=== PATIENT | female | born 1980 | race Caucasian/White ===

== ENCOUNTER → 2023-11-27 | Emergency (ER) | payer BC ==
[~2023-11-27] MED LIST: NA CHLORIDE 0.9% 1,000 ML ONE; POTASSIUM 25 MEQ EFFERV TAB ONE
[2023-11-27 14:28] LABS: Specific Gravity 1.024 (1.005-1.030)
[2023-11-27 14:30] LABS: Specific Gravity 1.024 (1.005-1.030); Urine Bacteria <20 /HPF (<20); Urine Bilirubin NEGATIVE (Negative); Urine Blood Negative (Negative); Urine Clarity Extremely Turbid (Clear); Urine Color Light-Yellow (Yellow); Urine Glucose NEGATIVE (Negative); Urine Mucus Slight /HPF (None Seen); Urine Protein TRACE (Negative); Urine Urobilinogen Normal (Normal)
[2023-11-27 14:53] LABS: Hematocrit 38.2 % (36.0-45.0); MCV 86.4 fL (80-100); MPV 7.9 fL (7.6-11.3); Platelets 209 thou/uL (152-406); RBC Red Blood Cell Count 4.42 M/uL (3.86-4.86)
--- NOTE | 2023-11-27 14:57 | RAD REPORT ---
EXAM DESCRIPTION: CT - Head Brain Wo Cont - 11/27/2023 2:22 pm CLINICAL HISTORY: Syncope COMPARISON: none TECHNIQUE: Computed axial tomography of the head was obtained. IV contrast was not requested. All CT scans are performed using dose optimization technique as appropriate and may include automated exposure control or mA/KV adjustment according to patient size. FINDINGS: An intracranial bleed is not seen The ventricles are normal in caliber No significant hypodense areas within the brain visualized No extra-axial fluid collection is noted. Fluid within the sinuses/ mastoids is not seen IMPRESSION: No acute intracranial abnormality is seen If patient's symptoms persist MRI of the brain would be recommended
--- NOTE | 2023-11-27 14:57 | RAD REPORT ---
EXAM DESCRIPTION: Jean Single View11/27/2023 2:33 pm CLINICAL HISTORY: Hypertension and syncope COMPARISON: none FINDINGS: The lungs appear clear of acute infiltrate. The heart is normal size IMPRESSION: No acute abnormalities displayed
[2023-11-27 15:10] LABS: ALT/SGPT 17 U/L (13-56); AST/SGOT 13 U/L (15-37); BUN Blood Urea Nitrogen 18 mg/dL (7-18); Bicarbonate 27 mEq/L (21-32); Glomerular Filtration Rate 75 ml/min (=/>90); Glucose Level 126 mg/dL (74-106); Potassium 3.3 mEq/L (3.5-5.1); Sodium Level 135 mEq/L (136-145)
[2023-11-27 15:11] LABS: Albumin 3.3 g/dL (3.4-5.0); Alkaline Phosphatase 64 U/L (45-117); Bilirubin Total 0.3 mg/dL (0.2-1.0); Magnesium 2.2 mg/dL (1.6-2.4); Protein, Total 7.6 g/dL (6.4-8.2); Troponin High Sensitivity 3.8 pg/mL (<58.9)
[2023-11-27 15:16] LABS: Bilirubin Direct < 0.1 mg/dL (0-0.2); Bilirubin Indirect, Calculated ND mg/dL (0.2-0.8)
--- NOTE | 2023-11-27 16:08 | ER ---
Nurse's Notes [facility] Name: Perla Baeza Age: 43 yrs Sex: Female : 1980 Arrival Date: 11/27/2023 Time: 13:50 Bed 14 Private MD: Diagnosis: Syncope Near;Hypokalemia;Hypertensive heart disease without heart failure;Diabetes mellitus due to underlying condition with hyperglycemia Presentation: 11/27 14:00 Chief complaint: EMS states: toned out for lightheadedness. Patient was at work and me1 became lightheaded. No LOC. Initial bp checked by nurse at patient's work on a wrist bp cuff was 70s/40s. BP by EMS at time of arrival was 170/93, hr 95. Established a 20g to LFA. No medications given by EMS. Coronavirus screen: Vaccine status: Patient reports being unvaccinated. Ebola Screen: No symptoms or risks identified at this time. Initial Sepsis Screen: Does the patient meet any 2 criteria? No. Patient's initial sepsis screen is negative. Does the patient have a suspected source of infection? No. Patient's initial sepsis screen is negative. Risk Assessment: Do you want to hurt yourself or someone else? Patient reports no desire to harm self or others. Onset of symptoms was November 27, 2023. 14:00 Method Of Arrival: EMS: [place] [id number] 14:00 Acuity: JEAN-PAUL 3 me1 Triage Assessment: 14:04 General: Appears ill, well groomed, well developed, well nourished, Behavior is calm, me1 cooperative, appropriate for age, Reports feeling ill for 12-24 hours, body aches, sneezing, sinus congestion and scratchy throat that all started yesterday. 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 Reports recent covid exposure and concern that she may have it. Pain: Denies pain. Neuro: Level of Consciousness is awake, alert, obeys commands, Oriented to person, place, time, situation, Appropriate for age. 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 Cardiovascular: Capillary refill < 3 seconds Patient's skin is warm and dry. Cardiovascular: Reports lightheadedness, Denies chest pain, shortness of breath. Respiratory: Airway is patent Respiratory effort is even, unlabored, Respiratory pattern is regular, symmetrical. GI: Patient currently denies abdominal pain. INTERNATIONAL NURSE: 16:33 LMP N/A - control method, Not me1 Historical: - Allergies: 14:04 No Known Allergies; me1 - Home Meds: 14:04 metformin [Active]; hctz [Active]; me1 - PMHx: 14:04 Diabetes mellitus; Hypertensive disorder; me1 - PSHx: 14:04 Cholecystectomy; me1 - Immunization history:: Adult Immunizations up to date. - Social history:: Smoking status: Patient denies any tobacco usage or history of. Screenin:08 [facility] ED Fall Risk Assessment (Adult) History of falling in the last 3 months, pr1 including since admission No falls in past 3 months (0 pts) Confusion or Disorientation No (0 pts) Intoxicated or Sedated No (0 pts) Impaired Gait No (0 pts) Mobility Assist Device Used No (0 pt) Altered Elimination No (0 pt) Score/Fall Risk Level 0 - 2 = Low Risk Maintained a safe environment, Provided non-skid footwear, Hourly rounding (assess needs \T\ fall precautionary measures) done. Abuse screen: Denies threats or abuse. Nutritional screening: No deficits noted. Tuberculosis screening: No symptoms or risk factors identified. Assessment: 14:08 General: See triage assessment. . me1 Vital Signs: 14:00 BP 156 / 97; Pulse 95; Resp 17; Temp 98.8(O); Pulse Ox 100% on R/A; Weight 78.47 kg; me1 Height 5 ft. 0 in. ; Pain 0/10; 15:00 BP 142 / 99; Pulse 99; Resp 11; Pulse Ox 99% on R/A; me1 16:00 BP 145 / 96; Pulse 94; Resp 16; Pulse Ox 98% on R/A; me1 14:00 Body Mass Index 33.79 (78.47 kg, 152.4 cm) me1 14:00 Pain Scale: Adult [facility] [place] Course: 14:00 Patient arrived in ED. me1 14:01 Alpesh Pineda PA is PHCP. cp 14:01 Alpesh De Los Santos MD is Attending Physician. cp 14:04 Triage completed. me1 14:04 Arm band placed on Patient placed in an exam room. me1 14:08 Patient has correct armband on for positive identification. Bed in low position. Call me1 light in reach. Side rails up X2. Provided Education on: POC. Verbalized understanding. . 14:08 No provider procedures requiring assistance completed. Maintain EMS IV. Dressing me1 intact. Good blood return noted. Site clean \T\ dry. Gauge \T\ site: 20g LFA. 14:23 CT Head Brain wo Cont In Process Unspecified. EDMS 14:25 Lacy Childs, RN is Primary Nurse. me1 14:25 Urinalysis W/Microscopic Sent. me1 14:25 PREGU Sent. me1 14:35 XRAY Chest (1 view) In Process Unspecified. EDMS 14:47 Urine Culture Sent. me1 14:47 Basic Metabolic Panel Sent. me1 14:47 CBC with Diff Sent. me1 14:47 LFT's Sent. me1 14:47 Magnesium Sent. me1 14:47 Troponin HS Sent. me1 15:09 Influenza Screen (a \T\ B) Sent. me1 15:09 Strep Sent. me1 15:09 COVID-19 SARS RT PCR Sent. me1 16:34 IV discontinued, intact, bleeding controlled, No redness/swelling at site. Pressure me1 dressing applied. Administered Medications: 14:54 Drug: NS 0.9% IV 1000 ml IV at 1000 ml/hr Per protocol; 1000 mL bolus Route: IV; Rate: me1 1000 ml/hr; Site: left forearm; 16:35 Follow up: IV Status: Completed infusion; IV Intake: 1000ml me1 16:07 Drug: Potassium PO Effervescent Tablet 50 mEq PO once; dissolve in 4 ounces of water or me1 juice Route: PO; 16:35 Follow up: Response: No adverse reaction me1 Medication: 14:08 VIS not applicable for this client. me1 Intake: 16:35 IV: 1000ml; Total: 1000ml. me1 Outcome: 16:08 Discharge ordered by . cp 16:34 Discharged to home ambulatory, with significant other, me1 16:34 Condition: stable 16:34 Discharge instructions given to patient, significant other, Instructed on discharge instructions, follow up and referral plans. Demonstrated understanding of instructions, follow-up care, 16:34 Patient left the ED. me1 Signatures: Dispatcher [employer] EDNJ Alpesh Pineda PA PA cp Lacy Childs, RN RN me1
--- NOTE | 2023-11-27 16:09 | EDPHYS ---
Physician Documentation [facility] Name: Perla Baeza Age: 43 yrs Sex: Female : 1980 Arrival Date: 11/27/2023 Time: 13:50 Bed 14 Private MD: ED Physician Alpesh De Los Santos HPI: 11/27 14:10 This 43 yrs old Female presents to ER via EMS with complaints of Near Syncope. cp 14:10 The patient has experienced near-syncope, almost passed out, felt faint. Onset: The cp symptoms/episode began/occurred just prior to arrival. Duration: This was a single episode. Context: occurred at work, occurred while the patient was sitting, Just prior to the episode the patient experienced dizziness, weakness. 14:10 Associated injury: The patient did not suffer any apparent associated injury. cp 14:10 Associated signs and symptoms: Pertinent positives: lightheadedness, Pertinent cp negatives: abdominal pain, chest pain. 14:10 Current symptoms: lightheaded. cp 14:10 EMS reports initial blood pressure on scene was low with systolic pressure in the 70's. 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 - Social history:: Smoking status: Patient denies any tobacco usage or history of. ROS: 14:15 Constitutional: Positive for body aches, chills, Negative for fever, poor PO intake, cp 14:15 Cardiovascular: Negative for chest pain, edema, palpitations, cp 14:15 Respiratory: Negative for cough, shortness of breath, wheezing, 14:15 Eyes: Negative for injury, pain, redness, and discharge, cp 14:15 ENT: Negative for drainage from ear(s), ear pain, sore throat, difficulty swallowing, difficulty handling secretions, 14:15 Abdomen/GI: Negative for abdominal pain, vomiting, diarrhea, constipation, 14:15 Neuro: Positive for dizziness, near syncope, weakness, Negative for altered mental status, numbness, syncope, tingling, 14:15 All other systems are negative, Exam: 14:20 Constitutional: The patient appears in no acute distress, alert, awake, cp non-diaphoretic, non-toxic, well developed, well nourished, 14:20 Head/Face: Normocephalic, atraumatic. cp 14:20 Eyes: Periorbital structures: appear normal, Pupils: equal, round, and reactive to light and accomodation, Extraocular movements: intact throughout, Conjunctiva: normal, no exudate, no injection, Lids and lashes: appear normal, bilaterally, 14:20 ENT: External ear(s): are unremarkable, Nose: is normal, Mouth: Lips: moist, Oral mucosa: pink and intact, moist, Posterior pharynx: Airway: no evidence of obstruction, patent, 14:20 Neck: ROM/movement: is normal, is supple, without pain, no range of motions limitations, no meningismus, no nuchal rigidity, 14:20 Chest/axilla: Inspection: normal, Palpation: is normal, no crepitus, no tenderness, 14:20 Cardiovascular: Rate: normal, Rhythm: regular, 14:20 Respiratory: the patient does not display signs of respiratory distress, Respirations: normal, no use of accessory muscles, no retractions, labored breathing, is not present, Breath sounds: are clear throughout, no decreased breath sounds, no stridor, no wheezing, 14:20 Abdomen/GI: Inspection: abdomen appears normal, Palpation: abdomen is soft and non-tender, in all quadrants, 14:20 Back: pain, is absent, ROM is normal, 14:20 Neuro: Orientation: to person, place \T\ time. Mentation: is normal, Cerebellar function: is grossly normal, Motor: moves all fours, strength is normal, Sensation: is normal, 14:48 ECG was reviewed by the Attending Physician. cp Vital Signs: 14:00 BP 156 / 97; Pulse 95; Resp 17; Temp 98.8(O); Pulse Ox 100% on R/A; Weight 78.47 kg; me1 Height 5 ft. 0 in. ; Pain 0/10; 15:00 BP 142 / 99; Pulse 99; Resp 11; Pulse Ox 99% on R/A; me1 16:00 BP 145 / 96; Pulse 94; Resp 16; Pulse Ox 98% on R/A; me1 14:00 Body Mass Index 33.79 (78.47 kg, 152.4 cm) me1 14:00 Pain Scale: Adult me1 MDM: 14:01 Patient medically screened. 16:07 Data reviewed: vital signs, nurses notes, lab test result(s), EKG, radiologic studies, cp CT scan, plain films, and as a result, I will discharge patient. 16:07 Differential Diagnosis: cardiac arrhythmia, cerebrovascular accident, , cp transient ischemic attack, vasovagal episode. Independent interpretation of the following test(s) in the Emergency Department EKG: See my EKG interpretation above. Care significantly affected by the following chronic conditions: Diabetes, Hypertension. Counseling: I had a detailed discussion with the patient and/or guardian regarding the historical points, exam findings, and any diagnostic results supporting the discharge/admit diagnosis, the presence of at least one elevated blood pressure reading (>120/80) during this emergency department visit, lab results, radiology results, the need for outpatient follow up, a family practitioner, to return to the emergency department if symptoms worsen or persist or if there are any questions or concerns that arise at home. Response to treatment: the patient's symptoms have markedly improved after treatment, and as a result, I will discharge patient. 11/27 14:07 Order name: Basic Metabolic Panel; Complete Time: 15:40 11/27 15:40 Interpretation: Normal except: NA 135; K 3.3; GLUC 126; GFR 75. 11/27 14:07 Order name: CBC with Diff; Complete Time: 14:57 11/27 14:57 Interpretation: Normal except: JOSE ALEJANDRO% 81.9; LYM% 10.0; NEUT A 8.4. 11/27 14:07 Order name: LFT's; Complete Time: 15:40 11/27 15:56 Interpretation: Normal except: AST 13; ALB 3.3; GLOB 4.3; A/G 0.8. 11/27 14:07 Order name: Magnesium; Complete Time: 15:40 11/27 15:57 Interpretation: Reviewed. 11/27 14:07 Order name: Troponin HS; Complete Time: 15:40 11/27 15:56 Interpretation: Reviewed. 11/27 14:07 Order name: Urinalysis W/Microscopic; Complete Time: 14:57 11/27 14:58 Interpretation: Normal except: [facility] Extremely Turbid; UPROT TRACE; UESTR 500; UWBC cp 10-20; URBC 5-10; HYAL 10-20. 11/27 14:07 Order name: PREGU; Complete Time: 14:57 11/27 14:36 Order name: Urine Culture [facility] 11/27 14:56 Order name: Influenza Screen (a \T\ B); Complete Time: 15:40 11/27 14:56 Order name: Strep 11/27 14:56 Order name: COVID-19 SARS RT PCR; Complete Time: 15:55 11/27 15:55 Interpretation: Reviewed. 11/27 15:26 Order name: Throat Culture [facility] 11/27 14:07 Order name: XRAY Chest (1 view); Complete Time: 15:00 11/27 15:00 Interpretation: Report review. 11/27 14:07 Order name: CT Head Brain wo Cont; Complete Time: 15:00 11/27 15:00 Interpretation: Report reviewed. 11/27 14:07 Order name: EKG; Complete Time: 14:07 11/27 14:07 Order name: Cardiac monitoring; Complete Time: 14:47 11/27 14:07 Order name: EKG - Nurse/Tech; Complete Time: 14:47 11/27 14:07 Order name: IV Saline Lock; Complete Time: 14:25 11/27 14:07 Order name: Labs collected and sent; Complete Time: 14:25 11/27 14:07 Order name: O2 Per Protocol; Complete Time: 14:25 11/27 14:07 Order name: O2 Sat Monitoring; Complete Time: 14:25 11/27 14:07 Order name: Orthostatics; Complete Time: 16:31 cp EC:48 Rate is 92 beats/min. Rhythm is regular. MO interval is normal. QRS interval is normal. cp QT interval is normal. T waves are Inverted in lead aVR. Interpreted by me. Reviewed by me. Administered Medications: 14:54 Drug: NS 0.9% IV 1000 ml IV at 1000 ml/hr Per protocol; 1000 mL bolus Route: IV; Rate: me1 1000 ml/hr; Site: left forearm; 16:35 Follow up: IV Status: Completed infusion; IV Intake: 1000ml me1 16:07 Drug: Potassium PO Effervescent Tablet 50 mEq PO once; dissolve in 4 ounces of water or me1 juice Route: PO; 16:35 Follow up: Response: No adverse reaction me1 Disposition Summary: 11/27/23 16:08 Discharge Ordered Notes: Location: Home cp Problem: new cp Symptoms: have improved cp Condition: Stable cp Diagnosis - Syncope Near cp - Hypokalemia cp - Hypertensive heart disease without heart failure cp - Diabetes mellitus due to underlying condition with hyperglycemia cp Followup: cp - With: Private Physician - When: 2 - 3 days - Reason: Recheck today's complaints Discharge Instructions: - Discharge Summary Sheet cp - Potassium Content of Foods cp - Hyperglycemia cp - Hypertension, Adult cp - Near-Syncope cp - Blood Glucose Monitoring, Adult cp - Diabetes Mellitus and Nutrition, Adult cp - Hypokalemia cp - Form - Blood Pressure Record Sheet cp - How to Take Your Blood Pressure cp Forms: - Medication Reconciliation Form cp - Thank You Letter cp - Antibiotic Education cp - Prescription Opioid Use cp - Patient Portal Instructions cp - Leadership Thank You Letter cp - Work release form me1 Signatures: Dispatcher [employer] EDMS Alpesh Pineda PA PA cp Lacy Childs, RN RN me1 Corrections: (The following items were deleted from the chart) 15:56 15:56 Normal except: AST 13. cp cp
[2023-11-27 18:25] VITALS: BP 145/96; TEMP 98.8; O2SAT 98
--- NOTE | 2023-12-04 13:56 | EKG ---
Test Date: 2023-11-27 Test Time: 14:41:29 Licensed Loan Officer: MEASUREMENT RESULTS: Intervals: Rate: 92 NV: 136 QRSD: 82 QT: 364 QTc: 450 [place]: P: 65 NV: 136 QRS: 38 T: 45 INTERPRETIVE STATEMENTS: Normal sinus rhythm with sinus arrhythmia Normal ECG Compared to ECG 12/26/2011 12:57:47 Sinus tachycardia no longer present Left ventricular hypertrophy no longer present Electronically Signed On 12-04-23 13:31:19 SENIOR MATERIALS ANALYST by Jimmy Gordon
== END ==
LOC: ER 13:50
DX: R55 Syncope and collapse (principal); E87.6 Hypokalemia; E08.65 Diabetes mellitus due to underlying condition with hyperglycemia; I10 Essential (primary) hypertension; Z79.84 Long term (current) use of oral hypoglycemic drugs; Z11.52 Encounter for screening for COVID-19
CPT/HCPCS: 96361; 93005; 87070; 87088; 85025; 81001; 87086; 80048; 36415; 83735; 81025; 80076; 87081; 84484; 87635; 87804 ×2; 70450; 71045; 96360; 99284; J7030